=== PATIENT | female | born 1970 | race Caucasian/White ===

== ENCOUNTER 2016-07-11 02:49 | Emergency (ER) | payer BC ==
[~2016-07-11] VITALS: Ht 162.6 cm; Wt 71.0 kg
[~2016-07-11 02:49] MED LIST: ASCA500 PO; AZEL0.15 NAE; B-COCAP2 PO; BIOT1CAP3 PO; CALC-416 PO; CLR10 PO; FLUT0.15; FLV1 PO; IBUP-103 PO; LEVO175T25 PO; MULT-506 PO; OMEG10002 PO; SIMV40TA2 PO; VITA400C15 PO; ZNTT/150 PO
[2016-07-11 02:54] VITALS: TEMP 36.9; Ht 162.6 cm; Wt 71.0 kg
[2016-07-11] MEDS ORDERED: FAMOTIDINE 20MG/102 ML D5W IV STA (03:01)
[2016-07-11] MEDS ORDERED: DiphenhydrAMINE HCL 50 MG/ML VIAL IV STA (03:01)
[2016-07-11 03:10] VITALS: O2SAT 100
[2016-07-11] MEDS ORDERED: DEXAMETHASONE SOD INJ 10 MG/ML VIAL IV ONE (03:15)
[2016-07-11] MEDS ORDERED: EPINEPHRINE ADULT AUTO-INJECT 0.3 MG SYR IM ONE (03:15)
[2016-07-11] MEDS ORDERED: ASCO500T3 PO (03:44)
[2016-07-11] MEDS ORDERED: FOLI1TAB7 PO (03:46)
[2016-07-11] MEDS ORDERED: LEVO150T9 PO (03:48)
[2016-07-11] MEDS ORDERED: VTME400 PO (03:51)
[2016-07-11] MEDS ORDERED: B-COTAB18 PO (03:52)
[2016-07-11] MEDS ORDERED: PRED20TA PO (03:53)
--- NOTE | 2016-07-11 04:28 | EMERGENCY ROOM VISIT NOTE ---
History First contact with patient: 03:00 Chief Complaint: ALLERGIC REACTION Stated Complaint: ALLERGIC REACTION TO MEDICATION, FACIAL Nursing Triage Summary: pt has been having hives strated in october on and off and recently last week and this week placed on new meds and she thinks she is having a reaction to it History of Present Illness The patient is a 45 year old female who presents to the Emergency Room with complaints of allergic reaction for the past few hours. Patient's artery being treated for an allergic reaction and the manager of international started her on Atarax and patient states tonight she developed facial swelling and lip swelling with throat discomfort. She called the nurse line and was advised to come here. No history of similar symptoms in the past. She's had urticaria without angioedema. Patient denies chest pain, dyspnea, fever, chills, numbness, tingling. She did not take her steroids at this morning. No other new foods soaps or discharge. Review of Systems See HPI for pertinent positives & negatives. A total of 10 systems reviewed and were otherwise negative. Past Medical/Surgical History Medical Problems: (1) Multiple allergies Family History Cancer Heart disease Social History Smoking Status: Never Smoker Drug Use: none Marital Status: Housing Status: lives with family Occupation Status: employed Current/Historical Medications Scheduled Ascorbic Acid (Vitamin C), 500 MG PO BID B-Complex Vitamins (Vitamin B Complex), 1 TAB PO DAILY Biotin (Biotin), 5,000 MCG PO DAILY Calcium Carbonate-Vitamin D (Calcium 600+D3), 1 TAB PO BID Fluticasone Propionate (Nasal) (Flonase Allergy Relief), 2 SPRAYS NA QAM Folic Acid (Folvite), 1 MG PO DAILY Levothyroxine Sodium (Levothyroxine Sodium), 150 MCG PO DAILY Loratadine (Claritin), 10 MG PO DAILY Multivitamin (Multivitamin), 1 TAB PO DAILY Acworth-3 Fatty Acids (Fish Oil), 1,000 MG PO DAILY Prednisone (Prednisone), 40 MG PO DAILY Ranitidine (Zantac), 150 MG PO BID Simvastatin (Zocor), 40 MG PO QPM Tocopheryl Acet,Dl-Alpha (Vitamin E/Dl-Alpha), 400 INTUNIT PO DAILY Scheduled PRN Ibuprofen Tab (Advil), 800 MG PO QID PRN for Pain Allergies Coded Allergies: Fluconazole (Verified Allergy, Severe, ANAPHYLAXIS, 07/11/16) Hydrocodone (Verified Allergy, Severe, ANAPHYLAXIS, 07/11/16) Oxycodone (Unverified Allergy, Severe, ANAPHYLAXIS, 07/11/16) Sertraline (Verified Allergy, Unknown, PT THINKS NAUSEA BUT NOT SURE, 07/11) Celecoxib (Unverified Adverse Reaction, Mild, NAUSEA, 07/11/16) Naproxen (Unverified Adverse Reaction, Mild, NAUSEA, 07/11/16) Tramadol (Unverified Adverse Reaction, Mild, NAUSEA, 07/11/16) Lanolin (Verified Adverse Reaction, Unknown, GI S/S, 07/11/16) Physical Exam Vital Signs Date Time Temp Pulse Resp B/P Pulse Ox O2 Delivery O2 Flow Rate FiO2 07/11/16 03:30 78 07/11/16 03:10 100 Room Air 07/11/16 02:54 36.9 87 18 142/79 99 Room Air Physical Exam VITALS: Vitals are noted on the nurse's note and reviewed by myself. Vital signs stable. GENERAL: Pleasant female who appears uncomfortable, in no acute distress, nondiaphoretic, well-developed well-nourished. SKIN: Diffuse erythematous blanchable dermatitis most consistent with allergic reaction The skin rest of the was without rashes, erythema, edema, or bruising. There is no tenting of the skin. Capillary reflex less than 2 seconds. HEAD: Normocephalic atraumatic. EARS: External auditory canals clear, tympanic membranes pearly bull without erythema or effusion bilaterally. EYES: Pupils equal round and reactive to light and accommodation. Conjunctivae without injection, sclerae without icterus. Extraocular movements intact. NOSE: Patent, turbinates without inflammation or discharge. No sinus tenderness. MOUTH: Mucous membranes moist. Lips are slightly edematous without angioedema Pharynx without erythema or exudate. Uvula midline. Airway patent. Tongue does not deviate. NECK: Supple without nuchal rigidity. No lymphadenopathy. No thyromegaly. Cervical spine is nontender. No JVD. HEART: Regular rate and rhythm without murmurs gallops or rubs. LUNGS: Clear to auscultation bilaterally without wheezes, rales or rhonchi. No dullness to percussion. No retractions or accessory muscle use. ABDOMEN: Positive bowel sounds x 4. Normal tympanic percussion. Soft, nontender, without masses or organomegaly. Rich sign negative. No guarding or rebound tenderness. MUSCULOSKELETAL: No muscle atrophy, erythema, or edema noted. NEURO: Patient was alert and oriented to person place and time. Normal sensation to light and sharp touch. No focal neurological deficits. Medical Decision & Procedures Medications Administered Medications (Trade) Dose Ordered Sig/Nenita Route Start Time Stop Time Status Last Admin Dose Admin Dexamethasone Sodium Phosphate (Decadron Inj) 10 mg NOW ONCE IV 07/11/16 03:15 07/11/16 03:16 DC 07/11/16 03:15 10 MG Famotidine (Pepcid 20mg/100 ml) 20 mg ONE STAT IV 07/11/16 03:01 07/11/16 03:04 DC 07/11/16 03:15 20 MG Diphenhydramine HCl (Benadryl Inj) 50 mg NOW STAT IV 07/11/16 03:01 07/11/16 03:04 DC 07/11/16 03:15 50 MG Epinephrine (Epipen) 0.3 mg NOW ONCE IM 07/11/16 03:15 07/11/16 03:16 DC 07/11/16 03:15 0.3 MG ED Course Prior records/ancillary studies reviewed. Triage Nursing notes reviewed. The patient's history was concerning for possible allergic reaction. Differential diagnosis: Etiologies such as allergic reaction, anaphylaxis, urticaria, Fernandes-Armando syndrome, toxic epidermal necrolysis, erythema multiforme, cellulitis, as well as others were entertained. Physical examination: As above. ER treatment provided: Continuous cardiac monitoring Benadryl 50 mg IV Pepcid 10 mg IV Decadron 10 mg IV Hydrocortisone cream On reassessment the patient felt better. Diagnostic interpretation by me: Deferred It appears the patient had an allergic reaction. The above treatment did well to reverse the symptoms. After prolonged monitoring and frequent reassessments the patient did very well and symptoms resolved. The patient was counseled on the spectrum of this disease process and told to avoid potential triggers. I gave my usual and customary discussion regarding this issue. By the evaluation outlined above emergent etiologies such as recurring anaphylaxis, anaphylatic shock, airway compromise, Fernandes-Armando syndrome, toxic epidermal necrolysis, erythema multiforme, infectious etiologies, as well as others were deemed relatively unlikely. The pt informed about the findings as listed above. All questions were answered and pleased with the treatment. Return instructions were outlined and the patient was discharged in stable condition. Outpatient prescription management: EpiPen Referral: The patient was referred back to primary care physician for follow-up in 2-3 days for a recheck of the current condition. and The patient was referred to Allergy/Immunology for further evaluation. Medical Decision As above Impression Primary Impression: Allergic reaction Departure Information Dispostion Home / Self-Care Condition GOOD Referrals Gabriel Hodges M.D. (PCP) Patient Instructions My [facility] Additional Instructions Do not take Atarax in the future. Sarbjit this as an allergy. Continue current steroid regimen as outlined by urologist. DO NOT drive, drink alcohol, operate machinery, or perform dangerous activities today. You were given medications in the ER that can affect your ability to safely function or operate a vehicle. Epi-Pen: Use one injection as instructed for severe allergic reactions associated with shortness of breath, difficulty breathing, or throat or tongue swelling. If you use this injection call 911 or proceed immediately to the nearest Emergency Room. Diphenhydramine(Benadryl) 25mg: use 25 to 50 mg every six hours for swelling, itching, or hives. This medication is sedating and will cause drowsiness. Avoid alcohol, operating machinery or dangerous equipment, working on ladders or roofs, DRIVING, or situations where being under the influence may be dangerous. Zantac 75: Take two pills twice a day along with Benadryl as needed for swelling , itching, or hives. Most people know this for its affect on the stomach, but it also acts similar to, but less potent than Benadryl for allergic reactions. Both the Benadryl and the Zantac are available [id number]. Continue current medications. Return to the emergency department for worsening of your rash, swelling of your face, lips, tongue, or throat, difficulty breathing, vomiting, or as needed. Follow-up with your primary care physician and manager of international in 2 to 3 days for a recheck of your current condition. Problem Qualifiers Primary Impression: Allergic reaction Encounter type: initial encounter Qualified Codes: T78.40XA - Allergy, unspecified, initial encounter
[2016-07-11] MEDS ORDERED: HYDROCORTISONE HC 2.5% CRM 30GM TUBE EXT ONE (04:30)
[2016-07-11 05:36] VITALS: BP 123/88; PULSE 80; O2SAT 100
== END 2016-07-11 05:39 | disposition home or self-care (01) ==
LOC: C.EDB 02:52
DX: T78.40XA Allergy, unspecified, initial encounter (principal); X58.XXXA Exposure to other specified factors, initial encounter; Z79.52 Long term (current) use of systemic steroids; Z79.899 Other long term (current) drug therapy; Z88.5 Allergy status to narcotic agent; Z88.6 Allergy status to analgesic agent; Z88.8 Allergy status to other drugs, medicaments and biological substances; Z82.49 Family history of ischemic heart disease and other diseases of the circulatory system

== ENCOUNTER → 2016-08-14 | Outpatient (CLI) | payer BC ==
[~2016-08-14] MED LIST changes: -ASCA500 PO; +ASCO500T3 PO; -AZEL0.15 NAE; -B-COCAP2 PO; +B-COTAB18 PO; -FLV1 PO; +FOLI1TAB7 PO; +LEVO150T9 PO; -LEVO175T25 PO; +PRED20TA PO; -VITA400C15 PO; +VTME400 PO
[2016-08-18 14:06] LABS: HERPES SIMPLEX CULT SOURCE OTHER-VUVLA; HERPES SIMPLEX VIRUS CULT NOT ISOLATED (NOT ISOLATED)
== END | disposition home or self-care (01) ==
LOC: C.LABSPEC 17:26
PROVIDERS: ATTEND Physician Assistant
DX: N94.9 Unspecified condition associated with female genital organs and menstrual cycle (principal)

== ENCOUNTER → 2016-12-25 | Outpatient (CLI) | payer BC | END | disposition home or self-care (01) | LOC: C.PAPS 17:44 | PROVIDERS: ATTEND Obstetrics & Gynecology | DX: Z01.419 Encounter for gynecological examination (general) (routine) without abnormal findings (principal) ==

== ENCOUNTER → 2017-02-10 | Outpatient (CLI) | payer BC ==
--- NOTE | 2017-02-11 12:38 | MAMMOGRAPHY REPORT ---
BILATERAL DIGITAL SCREENING MAMMOGRAM TOMOSYNTHESIS WITH CAD: 02/10/2017 TECHNIQUE: Breast tomosynthesis in addition to standard 2D mammography was performed. Current study was also evaluated with a Computer Aided Detection (CAD) system. COMPARISON: Comparison is made to exams dated: 10/04/2013 mammogram and 11/20/2014 mammogram - [facility]. BREAST COMPOSITION: There are scattered areas of fibroglandular density in both breasts. FINDINGS: No suspicious masses, calcifications, or areas of architectural distortion are noted in ei ther breast. There has been no significant interval change compared to prior exams. IMPRESSION: ACR BI-RADS CATEGORY 1: NEGATIVE There is no mammographic evidence of malignancy. A 1 year screening mammogram is recommended. The pa tient will receive written notification of the results. Approximately 10% of breast cancers are not detected with mammography. A negative mammographic report should not delay biopsy if a clinically suggestive mass is present. Jojo Woodward M.D. ah/:02/10/2017 16:24:57 Fermentation Operator: Chelo PIÑA(Myriam)(M), [facility] letter sent: Normal 1/2 BI-RADS Code: ACR BI-RADS Category 1: Negative
== END | disposition home or self-care (01) ==
LOC: C.MAMM 16:04
PROVIDERS: ATTEND Obstetrics & Gynecology
DX: Z12.31 Encounter for screening mammogram for malignant neoplasm of breast (principal)

== ENCOUNTER → 2017-09-01 | Outpatient (CLI) | payer OTHER ==
[~2017-09-01] MED LIST changes: -FOLI1TAB7 PO; +FOLI1TAB8 PO; +RANI150T85 PO; -ZNTT/150 PO
--- NOTE | 2017-09-01 12:42 | DIAGNOSTIC IMAGING REPORT ---
RIGHT FOOT 3 VIEWS CLINICAL HISTORY: Right foot pain. FINDINGS: 3 views of the right foot are compared to study dated 04/30/2014. The skeletal structures appear osteopenic. No fracture is identified. Postoperative change/deformity is noted in the distal aspect of the first metatarsal. Mild arthritic change is seen at the first metatarsophalangeal joint. A dorsal calcaneal enthesophyte is observed. The overlying soft tissues are within normal limits. IMPRESSION: 1. No acute bony abnormality is identified in the right foot. 2. Postoperative change is identified in the first metatarsal with mild arthritic change at the first metatarsophalangeal joint. Electronically signed by: Peterson Heller M.D. 09/01/2017 12:41 PM Dictated Date/Time: 09/01/2017 12:40 PM
== END | disposition home or self-care (01) ==
LOC: C.RAD1850 12:31
PROVIDERS: ATTEND Nurse Practitioner
DX: M79.671 Pain in right foot (principal)